=== PATIENT | male | born 1970 | race Caucasian/White ===

== ENCOUNTER 2020-05-07 08:05 | Outpatient (REF) | payer OTHER, SELFPAY ==
--- NOTE | 2020-05-07 10:13 | FL_ITS ---
EXAMINATION: XR FLUOROSCOPY WITH IMAGES CLINICAL INFORMATION: Shoulder pain. Fluoroscopy for shoulder injection. COMPARISON: Fluoroscopy with images 11/29/2019 TECHNIQUE: Fluoroscopy performed by Katherin Leo NP. Fluoroscopy time: 0.4 minutes DAP: 2.39 Gycm2 Images: 2 FINDINGS: There is spinal needle overlying the superior medial right humeral head and overlying the superior medial left shoulder capsule. There is some trace contrast in the shoulder joint capsule in each side. FL/FL guidance in treatment room IMPRESSION: Fluoroscopy for pain management procedures.
== END 2020-05-07 08:06 | disposition home or self-care (01) ==
LOC: HO.RADIR 08:05
PROVIDERS: Visit Provider Anesthesiology
DX: M19.011 Primary osteoarthritis, right shoulder (principal); M19.012 Primary osteoarthritis, left shoulder
CPT/HCPCS: 20610; J3300; Q9967

== ENCOUNTER 2020-10-31 07:55 | Outpatient (REF) | payer OTHER, SELFPAY ==
--- NOTE | ~2020-10-31 | XR_ITS ---
EXAMINATION: XR STANDING KNEES BILATERAL XR LEFT KNEE 2 VIEWS CLINICAL INFORMATION: Pain COMPARISON: 09/21/2019 TECHNIQUE: AP standing bilateral lower extremities. Lateral and sunrise view left knee. FINDINGS: AP standing radiograph obtained of both knees: Mild to moderate medial compartment narrowing of the right knee is similar to prior with mild varus deformity. 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 Left knee: Additional views of the left knee show normal alignment of the total knee arthroplasty. A small knee effusion is seen in the suprapatellar bursa. Mild soft tissue swelling. Corticated bony fragments are seen superior to the patella. XR/XR knee LT 2V IMPRESSION: Right knee demonstrates mild to moderate medial compartment narrowing. Left knee shows normal alignment to the total knee arthroplasty with a small effusion and soft tissue swelling.
--- NOTE | ~2020-10-31 | XR_ITS ---
EXAMINATION: XR STANDING KNEES BILATERAL XR LEFT KNEE 2 VIEWS CLINICAL INFORMATION: Pain COMPARISON: 09/21/2019 TECHNIQUE: AP standing bilateral lower extremities. Lateral and sunrise view left knee. FINDINGS: AP standing radiograph obtained of both knees: Mild to moderate medial compartment narrowing of the right knee is similar to prior with mild varus deformity. 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 Left knee: Additional views of the left knee show normal alignment of the total knee arthroplasty. A small knee effusion is seen in the suprapatellar bursa. Mild soft tissue swelling. Corticated bony fragments are seen superior to the patella. XR/XR knee standing BI IMPRESSION: Right knee demonstrates mild to moderate medial compartment narrowing. Left knee shows normal alignment to the total knee arthroplasty with a small effusion and soft tissue swelling.
== END 2020-10-31 07:56 | disposition home or self-care (01) ==
LOC: HO.HOSX 07:55
PROVIDERS: Visit Provider Orthopaedic Surgery
DX: Z47.1 Aftercare following joint replacement surgery (principal); Z96.652 Presence of left artificial knee joint
CPT/HCPCS: 73560; 73565; 99212

== ENCOUNTER → 2021-02-03 11:04 | Outpatient (BNVA) | payer OTHER, SELFPAY | PROVIDERS: Visit Provider Orthopaedic Surgery | DX: M17.11 Unilateral primary osteoarthritis, right knee (principal) | CPT/HCPCS: 20610; 99212; J1100 ==

== ENCOUNTER → 2021-02-10 10:56 | Outpatient (BNVA) | payer OTHER, SELFPAY | PROVIDERS: PCP Internal Medicine; Visit Provider Anesthesiology | DX: M19.011 Primary osteoarthritis, right shoulder (principal); M19.012 Primary osteoarthritis, left shoulder; M25.511 Pain in right shoulder; M25.512 Pain in left shoulder; Z79.899 Other long term (current) drug therapy | CPT/HCPCS: 99212 ==

== ENCOUNTER → 2021-05-08 10:05 | Outpatient (BNVA) | payer OTHER, SELFPAY | PROVIDERS: Visit Provider Orthopaedic Surgery | DX: M17.11 Unilateral primary osteoarthritis, right knee (principal); M54.16 Radiculopathy, lumbar region; Z47.1 Aftercare following joint replacement surgery; Z96.652 Presence of left artificial knee joint | CPT/HCPCS: 99212 ==

== ENCOUNTER 2021-05-13 05:48 | Outpatient (REF) | payer OTHER, SELFPAY ==
--- NOTE | ~2021-05-13 | FL_ITS ---
EXAMINATION: XR FLUOROSCOPY WITH IMAGES CLINICAL INFORMATION: Primary osteoarthritis of the right shoulder COMPARISON: 05/07/2020 TECHNIQUE: Fluoroscopy performed by Dr. Howard Borjas. Fluoroscopy time: 0.4 minutes DAP: 3.1 Gycm2 Images: 2 FINDINGS: There is fluoroscopic guidance for needle access to both the right and left glenohumeral joints. Contrast injected demonstrating proper positioning of the needle at both joints. FL/FL guidance in treatment room IMPRESSION: Fluoroscopic guidance for injection at both the right and left glenohumeral joints. Please refer to procedural report for further information.
== END 2021-05-13 05:49 | disposition home or self-care (01) ==
LOC: HO.RADIR 05:48
PROVIDERS: Visit Provider Anesthesiology
DX: M19.012 Primary osteoarthritis, left shoulder (principal); M19.011 Primary osteoarthritis, right shoulder
CPT/HCPCS: 20610; J3300; Q9967